=== PATIENT | male | born 1965 | race Caucasian/White ===

== ENCOUNTER 2017-05-03 09:10 | Inpatient (IN) | payer OTHER ==
[2017-05-03] MEDS: ALBUTEROL 0.5% (NEB) 2.5 MG/0.5 ML AMP NEB (11:32)
[2017-05-03] MEDS: IPRATROPIUM (NEB) 0.5 MG/2.5 ML AMP NEB (11:32)
[2017-05-03 11:36] LABS: ADD MAN DIFF? NO
[2017-05-03 11:39] LABS: WHITE BLOOD COUNT 11.3 10^3/ul (4.8-10.8)
[2017-05-03 11:39] LABS: BASOPHILS % 0.4 % (0.0-2.0); EOSINOPHILS % 0.2 % (0.0-7.0); HEMATOCRIT 48.7 % (42.0-52.0); HEMOGLOBIN 15.3 g/dl (14.0-18.0); LYMPHOCYTES # 1.4 10^3/ul (0.8-2.9); LYMPHOCYTES % 12.1 % (15.0-51.0); MEAN CORPUSCULAR HEMOGLOBIN 28.2 pg (29.0-33.0); MEAN CORPUSCULAR HGB CONC 31.4 g/dl (32.0-37.0); MEAN CORPUSCULAR VOLUME 89.7 fl (82.0-101.0); MEAN PLATELET VOLUME 9.6 fl (7.4-10.4); MONOCYTE # 1.1 10^3/ul (0.3-0.9); MONOCYTES % 9.7 % (0.0-11.0); NEUTROPHIL # 8.7 10^3/ul (1.6-7.5); NEUTROPHILS % 77.1 % (39.0-77.0); NUCLEATED RED BLOOD CELLS% 0.2 /100WBC (0.0-0.0); PLATELET COUNT 291 10^3/UL (140-415); RED BLOOD COUNT 5.43 10^6/ul (4.70-6.10); RED CELL DISTRIBUTION WIDTH 13.7 % (11.5-14.5)
[2017-05-03 12:04] LABS: ANION GAP 19 (8-16); BLOOD UREA NITROGEN 34 mg/dl (7-20); CALCIUM 8.9 mg/dl (8.4-10.2); CARBON DIOXIDE 32 mmol/L (21-31); CHLORIDE 98 mmol/L (97-110); CREATININE 1.26 mg/dl (0.61-1.24); GLUCOSE 108 mg/dl (70-220); POTASSIUM 3.9 mmol/L (3.5-5.1); SODIUM 145 mmol/L (135-144)
[2017-05-03] MEDS: CEFTRIAXONE 1 GM/50 ML (PMX) 50 ML IVPB (12:13)
[2017-05-03 12:22] LABS: TROPONIN-I 0.144 ng/ml (0.00-0.12)
[2017-05-03] MEDS ORDERED: ONDANSETRON 4 MG INJ IV ×2 (12:30→15:00)
[2017-05-03] MEDS ORDERED: ACETAMINOPHEN 325 MG TAB PO (12:30)
[2017-05-03] MEDS: AZITHROMYCIN 500MG/250 ML IVPB IV (14:12)
[2017-05-03] MEDS ORDERED: SOD CHLORIDE 0.9% 1,000 ML IV (15:00)
[2017-05-03] MEDS: [UNRECOGNIZED DRUG - MIXTURE] XX (17:27)
[2017-05-03] MEDS: LEVOFLOXACIN 750MG/D5W (PMX) 150 ML IVPB (17:40)
[2017-05-03] MEDS: METOPROLOL (XL) 25 MG TAB PO (17:40)
[2017-05-03] MEDS: ACETAMINOPHEN 325 MG TAB PO ×2 (17:54→20:46)
[2017-05-03] MEDS: ALBUTEROL/IPRATROPIUM (NEB) 3 ML AMP HHN ×2 (17:56→20:41)
[2017-05-03 19:58] LABS: CREATINE KINASE 156 IU/L (23-200)
[2017-05-03 19:59] LABS: PHOSPHORUS 2.3 mg/dl (2.5-4.9)
[2017-05-03 19:59] LABS: MAGNESIUM 1.9 mg/dl (1.7-2.5)
[2017-05-03 20:05] LABS: OPIATES Negative (NEGATIVE)
[2017-05-03 20:12] LABS: CK INDEX 1.8; CK-MB 2.81 ng/ml (0.0-2.4); TROPONIN-I 0.175 ng/ml (0.00-0.12)
[2017-05-03 20:16] LABS: AMPHETAMINE/METHAMPHETAMINE POSITIVE (NEGATIVE); BARBITURATES Negative (NEGATIVE); BENZODIAZEPINES Negative (NEGATIVE); CANNABINOIDS Negative (NEGATIVE); COCAINE Negative (NEGATIVE)
[2017-05-03] MEDS: DOCUSATE SODIUM 100 MG CAP PO (20:22)
[2017-05-03] MEDS: ATORVASTATIN 80 MG TAB PO (20:51)
[2017-05-03] MEDS: FAMOTIDINE 20 MG TAB PO (20:51)
[2017-05-03] MEDS: ENOXAPARIN 60 MG/0.6 ML SYG SC (21:00)
[2017-05-03] MEDS: POTASSIUM PHOSPHATE 15 MM in SOD CHLORIDE 0.9% 250 ML IVPB (22:45)
[2017-05-04 00:16] LABS: CREATINE KINASE 152 IU/L (23-200)
[2017-05-04 00:27] LABS: CK INDEX 2.2
[2017-05-04 00:30] LABS: CK-MB 3.32 ng/ml (0.0-2.4); TROPONIN-I 0.182 ng/ml (0.00-0.12)
[2017-05-04] MEDS: ALBUTEROL/IPRATROPIUM (NEB) 3 ML AMP HHN ×4 (01:24→21:24)
[2017-05-04] MEDS: [UNRECOGNIZED DRUG - MIXTURE] XX ×3 (01:30→15:57)
[2017-05-04 07:34] LABS: ADD MAN DIFF? NO
[2017-05-04 07:53] LABS: BASOPHILS % 0.4 % (0.0-2.0); EOSINOPHILS % 0.4 % (0.0-7.0); HEMOGLOBIN 14.3 g/dl (14.0-18.0); LYMPHOCYTES # 1.8 10^3/ul (0.8-2.9); LYMPHOCYTES % 18.2 % (15.0-51.0); MEAN CORPUSCULAR HGB CONC 30.4 g/dl (32.0-37.0); MEAN CORPUSCULAR VOLUME 92.2 fl (82.0-101.0); MEAN PLATELET VOLUME 10.1 fl (7.4-10.4); MONOCYTE # 0.9 10^3/ul (0.3-0.9); MONOCYTES % 8.7 % (0.0-11.0); NEUTROPHIL # 7.1 10^3/ul (1.6-7.5); NEUTROPHILS % 71.8 % (39.0-77.0); PLATELET COUNT 246 10^3/UL (140-415); RED CELL DISTRIBUTION WIDTH 13.7 % (11.5-14.5)
[2017-05-04 07:53] LABS: WHITE BLOOD COUNT 9.9 10^3/ul (4.8-10.8)
[2017-05-04] MEDS: FAMOTIDINE 20 MG TAB PO ×2 (08:03→20:48)
[2017-05-04] MEDS: DOCUSATE SODIUM 100 MG CAP PO ×2 (08:03→20:48)
[2017-05-04] MEDS: METOPROLOL (XL) 25 MG TAB PO (08:04)
[2017-05-04 08:12] LABS: HEMOGLOBIN A1C 6.5 % (0-5.9)
[2017-05-04 08:13] LABS: ALANINE AMINOTRANSFERASE 37 IU/L (13-69); ALBUMIN 3.7 g/dl (3.3-4.9); ALKALINE PHOSPHATASE 90 IU/L (42-121); ANION GAP 15 (8-16); ASPARTATE AMINO TRANSFERASE 36 IU/L (15-46); BILIRUBIN,INDIRECT 0.1 mg/dl (0-1.1); BILIRUBIN,TOTAL 0.1 mg/dl (0.2-1.3); BLOOD UREA NITROGEN 31 mg/dl (7-20); CALCIUM 8.4 mg/dl (8.4-10.2); CARBON DIOXIDE 33 mmol/L (21-31); CHLORIDE 100 mmol/L (97-110); CREATININE 1.07 mg/dl (0.61-1.24); GLUCOSE 114 mg/dl (70-220); MAGNESIUM 2.2 mg/dl (1.7-2.5); PHOSPHORUS 3.5 mg/dl (2.5-4.9); POTASSIUM 4.6 mmol/L (3.5-5.1); SODIUM 143 mmol/L (135-144); TOTAL PROTEIN 7.3 g/dl (6.1-8.1)
[2017-05-04] MEDS: FUROSEMIDE 20 MG INJ IV (08:14)
[2017-05-04] MEDS: ENOXAPARIN 60 MG/0.6 ML SYG SC (08:14)
[2017-05-04] MEDS: ASPIRIN (EC) 81 MG TAB PO (08:14)
[2017-05-04] MEDS: LEVOFLOXACIN 750MG/D5W (PMX) 150 ML IVPB (17:16)
[2017-05-04 19:51] LABS: THYROID STIMULATING HORMONE 0.723 MIU/L (0.465-4.680)
[2017-05-04] MEDS: METHYLPREDNISOLONE 125 MG INJ IV (20:47)
[2017-05-04] MEDS: ATORVASTATIN 80 MG TAB PO (20:48)
[2017-05-04] MEDS: BENAZEPRIL 10 MG TAB PO (20:48)
[2017-05-04] MEDS: hydrALAzine 20 MG INJ IV (23:57)
[2017-05-05] MEDS: ALBUTEROL/IPRATROPIUM (NEB) 3 ML AMP HHN ×4 (02:31→20:13)
[2017-05-05] MEDS: [UNRECOGNIZED DRUG - MIXTURE] XX ×3 (07:31→17:30)
[2017-05-05 08:03] LABS: ADD MAN DIFF? NO
[2017-05-05 08:08] LABS: BASOPHILS % 0.3 % (0.0-2.0); HEMATOCRIT 47.2 % (42.0-52.0); HEMOGLOBIN 14.5 g/dl (14.0-18.0); LYMPHOCYTES # 0.9 10^3/ul (0.8-2.9); LYMPHOCYTES % 11.5 % (15.0-51.0); MEAN CORPUSCULAR HEMOGLOBIN 27.8 pg (29.0-33.0); MEAN CORPUSCULAR HGB CONC 30.7 g/dl (32.0-37.0); MEAN CORPUSCULAR VOLUME 90.4 fl (82.0-101.0); MONOCYTE # 0.1 10^3/ul (0.3-0.9); MONOCYTES % 1.3 % (0.0-11.0); NEUTROPHIL # 6.8 10^3/ul (1.6-7.5); NEUTROPHILS % 85.3 % (39.0-77.0); PLATELET COUNT 280 10^3/UL (140-415); RED BLOOD COUNT 5.22 10^6/ul (4.70-6.10); RED CELL DISTRIBUTION WIDTH 13.4 % (11.5-14.5)
[2017-05-05 08:27] LABS: CHOLESTEROL 166 mg/dl (100-200)
[2017-05-05 08:27] LABS: CHOL/HDL RATIO 4.7 RATIO; CREATINE KINASE 87 IU/L (23-200); HDL CHOLESTEROL 35 mg/dl (28-71); LDL CHOLESTEROL,CALCULATED 111 mg/dl; TRIGLYCERIDES 101 mg/dl (0-149)
[2017-05-05 08:35] LABS: CK INDEX 3.4
[2017-05-05 08:37] LABS: CK-MB 2.98 ng/ml (0.0-2.4); TROPONIN-I 0.134 ng/ml (0.00-0.12)
[2017-05-05 08:38] LABS: ANION GAP 15 (8-16); BLOOD UREA NITROGEN 26 mg/dl (7-20); CALCIUM 8.8 mg/dl (8.4-10.2); CARBON DIOXIDE 34 mmol/L (21-31); CHLORIDE 96 mmol/L (97-110); CREATININE 0.82 mg/dl (0.61-1.24); GLUCOSE 143 mg/dl (70-220); POTASSIUM 4.7 mmol/L (3.5-5.1); SODIUM 140 mmol/L (135-144)
[2017-05-05] MEDS: ASPIRIN (EC) 81 MG TAB PO (08:51)
[2017-05-05] MEDS: BENAZEPRIL 10 MG TAB PO (08:51)
[2017-05-05] MEDS: FUROSEMIDE 20 MG INJ IV (08:51)
[2017-05-05] MEDS: DOCUSATE SODIUM 100 MG CAP PO ×2 (08:51→20:32)
[2017-05-05] MEDS: FAMOTIDINE 20 MG TAB PO ×2 (08:52→20:33)
[2017-05-05] MEDS: ENOXAPARIN 40 MG/0.4 ML SYG SC (08:52)
[2017-05-05] MEDS: METOPROLOL (XL) 25 MG TAB PO (08:52)
[2017-05-05 11:08] LABS: AADO2 Arterial 116.2 mmHg (7.0-24.0); Allen Test ACCEPTAB; Arterial Base Excess 7.4 mmol/L (-3.0-3); Arterial Blood Gas Oxygen Sat 90.6 mmHG (95.0-98.0); Arterial COHb 0.7 % (0.0-3.0); Arterial Fraction of Oxyhgb 89.8 % (93.0-99.0); Arterial HCO3 35.8 mmol/L (22.0-26.0); Arterial MetHb 0.2 % (0.0-1.5); Arterial Total Hemglobin 15.5 g/dl (12.0-18.0); Arterial pCO2 66.6 mmhg (35-45); MODE NASAL CANNULA; Site Right Radial
[2017-05-05] MEDS: CEFEPIME 1GM/50 ML (PMX) 50 ML IVPB ×2 (11:17→20:32)
[2017-05-05] MEDS: BENAZEPRIL 20 MG TAB PO (15:19)
[2017-05-05] MEDS: LEVOFLOXACIN 750MG/D5W (PMX) 150 ML IVPB (15:19)
[2017-05-05] MEDS: ATORVASTATIN 80 MG TAB PO (20:32)
[2017-05-05] MEDS: hydrALAzine 20 MG INJ IV (20:47)
[2017-05-06] MEDS: [UNRECOGNIZED DRUG - MIXTURE] XX ×3 (01:30→17:30)
[2017-05-06] MEDS: ALBUTEROL/IPRATROPIUM (NEB) 3 ML AMP HHN ×3 (01:53→20:53)
[2017-05-06 07:21] LABS: ADD MAN DIFF? NO
[2017-05-06 07:23] LABS: WHITE BLOOD COUNT 9.6 10^3/ul (4.8-10.8)
[2017-05-06 07:23] LABS: BASOPHIL # 0.1 10^3/ul (0.0-0.1); BASOPHILS % 0.5 % (0.0-2.0); EOSINOPHILS % 0.2 % (0.0-7.0); HEMATOCRIT 46.5 % (42.0-52.0); HEMOGLOBIN 14.4 g/dl (14.0-18.0); LYMPHOCYTES # 1.4 10^3/ul (0.8-2.9); LYMPHOCYTES % 14.7 % (15.0-51.0); MEAN CORPUSCULAR HEMOGLOBIN 27.8 pg (29.0-33.0); MEAN CORPUSCULAR VOLUME 89.8 fl (82.0-101.0); MEAN PLATELET VOLUME 9.5 fl (7.4-10.4); MONOCYTE # 0.6 10^3/ul (0.3-0.9); MONOCYTES % 6.6 % (0.0-11.0); NEUTROPHIL # 7.4 10^3/ul (1.6-7.5); NUCLEATED RED BLOOD CELLS% 0.2 /100WBC (0.0-0.0); PLATELET COUNT 329 10^3/UL (140-415); RED BLOOD COUNT 5.18 10^6/ul (4.70-6.10); RED CELL DISTRIBUTION WIDTH 13.3 % (11.5-14.5)
[2017-05-06 07:42] LABS: MAGNESIUM 1.9 mg/dl (1.7-2.5)
[2017-05-06 07:45] LABS: ANION GAP 13 (8-16); BLOOD UREA NITROGEN 27 mg/dl (7-20); CARBON DIOXIDE 35 mmol/L (21-31); CHLORIDE 96 mmol/L (97-110); CREATININE 0.83 mg/dl (0.61-1.24); GLUCOSE 130 mg/dl (70-220); POTASSIUM 4.3 mmol/L (3.5-5.1); SODIUM 140 mmol/L (135-144)
[2017-05-06] MEDS: DOCUSATE SODIUM 100 MG CAP PO ×2 (08:11→20:41)
[2017-05-06] MEDS: FAMOTIDINE 20 MG TAB PO ×2 (08:12→20:41)
[2017-05-06] MEDS: METOPROLOL (XL) 25 MG TAB PO (08:12)
[2017-05-06] MEDS: ASPIRIN (EC) 81 MG TAB PO (08:12)
[2017-05-06] MEDS: FUROSEMIDE 20 MG INJ IV (08:12)
[2017-05-06] MEDS: BENAZEPRIL 40 MG TAB PO (08:12)
[2017-05-06] MEDS: CEFEPIME 1GM/50 ML (PMX) 50 ML IVPB ×2 (08:13→22:32)
[2017-05-06] MEDS: ENOXAPARIN 40 MG/0.4 ML SYG SC (09:00)
[2017-05-06] MEDS: AMLODIPINE 5 MG TAB PO ×2 (10:44→20:44)
[2017-05-06] MEDS: LEVOFLOXACIN 750MG/D5W (PMX) 150 ML IVPB (15:26)
[2017-05-06] MEDS: hydrALAzine 20 MG INJ IV (17:22)
[2017-05-06] MEDS: CLOPIDOGREL 75 MG TAB PO (18:05)
[2017-05-06] MEDS: ATORVASTATIN 80 MG TAB PO (20:41)
[2017-05-07] MEDS: ALBUTEROL/IPRATROPIUM (NEB) 3 ML AMP HHN ×2 (02:06→20:34)
[2017-05-07 07:24] LABS: ADD MAN DIFF? NO
[2017-05-07 07:27] LABS: BASOPHIL # 0.1 10^3/ul (0.0-0.1); BASOPHILS % 0.8 % (0.0-2.0); EOSINOPHILS # 0.1 10^3/ul (0.0-0.5); EOSINOPHILS % 0.9 % (0.0-7.0); HEMATOCRIT 46.9 % (42.0-52.0); LYMPHOCYTES # 1.6 10^3/ul (0.8-2.9); LYMPHOCYTES % 17.4 % (15.0-51.0); MEAN CORPUSCULAR HEMOGLOBIN 28.4 pg (29.0-33.0); MEAN CORPUSCULAR VOLUME 88.7 fl (82.0-101.0); MEAN PLATELET VOLUME 9.4 fl (7.4-10.4); MONOCYTE # 0.7 10^3/ul (0.3-0.9); MONOCYTES % 7.8 % (0.0-11.0); NEUTROPHIL # 6.4 10^3/ul (1.6-7.5); NEUTROPHILS % 71.5 % (39.0-77.0); NUCLEATED RED BLOOD CELLS% 0.2 /100WBC (0.0-0.0); PLATELET COUNT 324 10^3/UL (140-415); RED BLOOD COUNT 5.29 10^6/ul (4.70-6.10); RED CELL DISTRIBUTION WIDTH 13.2 % (11.5-14.5)
[2017-05-07 07:47] LABS: ANION GAP 15 (8-16); BLOOD UREA NITROGEN 23 mg/dl (7-20); CALCIUM 9.1 mg/dl (8.4-10.2); CARBON DIOXIDE 34 mmol/L (21-31); CHLORIDE 95 mmol/L (97-110); CREATININE 0.87 mg/dl (0.61-1.24); GLUCOSE 126 mg/dl (70-220); POTASSIUM 4.2 mmol/L (3.5-5.1); SODIUM 140 mmol/L (135-144)
[2017-05-07] MEDS: [UNRECOGNIZED DRUG - MIXTURE] XX ×3 (07:51→16:08)
[2017-05-07] MEDS: CEFEPIME 1GM/50 ML (PMX) 50 ML IVPB ×2 (08:16→21:17)
[2017-05-07] MEDS: CLOPIDOGREL 75 MG TAB PO (08:17)
[2017-05-07] MEDS: ASPIRIN (EC) 81 MG TAB PO (08:17)
[2017-05-07] MEDS: FAMOTIDINE 20 MG TAB PO ×2 (08:17→21:17)
[2017-05-07] MEDS: DOCUSATE SODIUM 100 MG CAP PO ×2 (08:17→21:17)
[2017-05-07] MEDS: AMLODIPINE 5 MG TAB PO ×2 (08:19→21:18)
[2017-05-07] MEDS: BENAZEPRIL 40 MG TAB PO (08:19)
[2017-05-07] MEDS: FUROSEMIDE 20 MG INJ IV (08:19)
[2017-05-07] MEDS: ENOXAPARIN 40 MG/0.4 ML SYG SC (08:20)
[2017-05-07] MEDS: METOPROLOL (XL) 25 MG TAB PO (08:20)
[2017-05-07] MEDS: LEVOFLOXACIN 750MG/D5W (PMX) 150 ML IVPB (16:53)
[2017-05-07] MEDS: hydrALAzine 20 MG INJ IV (17:59)
[2017-05-07 20:01] LABS: B-TYPE NATRIURETIC PEPTIDE 2430 PG/ML (0-125)
[2017-05-07 20:02] LABS: TROPONIN-I 0.136 ng/ml (0.00-0.12)
[2017-05-07] MEDS: ATORVASTATIN 80 MG TAB PO (21:17)
[2017-05-08] MEDS: [UNRECOGNIZED DRUG - MIXTURE] XX ×3 (01:30→17:30)
[2017-05-08 01:32] LABS: TROPONIN-I 0.143 ng/ml (0.00-0.12)
[2017-05-08] MEDS: ALBUTEROL/IPRATROPIUM (NEB) 3 ML AMP HHN (02:14)
[2017-05-08 07:38] LABS: ADD MAN DIFF? NO
[2017-05-08 07:46] LABS: BASOPHIL # 0.1 10^3/ul (0.0-0.1); BASOPHILS % 0.7 % (0.0-2.0); EOSINOPHILS # 0.1 10^3/ul (0.0-0.5); EOSINOPHILS % 1.6 % (0.0-7.0); HEMATOCRIT 48.1 % (42.0-52.0); HEMOGLOBIN 15.2 g/dl (14.0-18.0); LYMPHOCYTES # 1.6 10^3/ul (0.8-2.9); LYMPHOCYTES % 18.4 % (15.0-51.0); MEAN CORPUSCULAR HEMOGLOBIN 27.8 pg (29.0-33.0); MEAN CORPUSCULAR HGB CONC 31.6 g/dl (32.0-37.0); MEAN CORPUSCULAR VOLUME 88.1 fl (82.0-101.0); MEAN PLATELET VOLUME 9.5 fl (7.4-10.4); MONOCYTE # 0.8 10^3/ul (0.3-0.9); MONOCYTES % 8.6 % (0.0-11.0); NEUTROPHIL # 6.1 10^3/ul (1.6-7.5); NUCLEATED RED BLOOD CELLS% 0.2 /100WBC (0.0-0.0); PLATELET COUNT 335 10^3/UL (140-415); RED BLOOD COUNT 5.46 10^6/ul (4.70-6.10); RED CELL DISTRIBUTION WIDTH 13.5 % (11.5-14.5)
[2017-05-08 07:46] LABS: WHITE BLOOD COUNT 8.8 10^3/ul (4.8-10.8)
[2017-05-08 08:23] LABS: TROPONIN-I 0.113 ng/ml (0.00-0.12)
[2017-05-08 08:30] LABS: ANION GAP 15 (8-16); BLOOD UREA NITROGEN 20 mg/dl (7-20); CARBON DIOXIDE 33 mmol/L (21-31); CHLORIDE 95 mmol/L (97-110); CREATININE 0.87 mg/dl (0.61-1.24); GLUCOSE 129 mg/dl (70-220); POTASSIUM 4.4 mmol/L (3.5-5.1); SODIUM 139 mmol/L (135-144)
[2017-05-08] MEDS: ENOXAPARIN 40 MG/0.4 ML SYG SC (09:00)
[2017-05-08] MEDS: ASPIRIN (EC) 81 MG TAB PO (09:09)
[2017-05-08] MEDS: CLOPIDOGREL 75 MG TAB PO (09:09)
[2017-05-08] MEDS: DOCUSATE SODIUM 100 MG CAP PO ×2 (09:10→21:18)
[2017-05-08] MEDS: FAMOTIDINE 20 MG TAB PO ×2 (09:10→21:19)
[2017-05-08] MEDS: BENAZEPRIL 40 MG TAB PO (09:10)
[2017-05-08] MEDS: AMLODIPINE 5 MG TAB PO ×2 (09:10→21:21)
[2017-05-08] MEDS: FUROSEMIDE 20 MG INJ IV (09:11)
[2017-05-08] MEDS: CEFEPIME 1GM/50 ML (PMX) 50 ML IVPB ×2 (09:11→21:19)
[2017-05-08] MEDS: METOPROLOL (XL) 25 MG TAB PO ×2 (09:15→21:20)
[2017-05-08 11:48] LABS: AADO2 Arterial 85.7 mmHg (7.0-24.0); Allen Test ACCEPTAB; Arterial Base Excess 7.5 mmol/L (-3.0-3); Arterial Blood Gas Oxygen Sat 94.1 mmHG (95.0-98.0); Arterial COHb 0.7 % (0.0-3.0); Arterial Fraction of Oxyhgb 93.2 % (93.0-99.0); Arterial HCO3 35.7 mmol/L (22.0-26.0); Arterial MetHb 0.3 % (0.0-1.5); Arterial Total Hemglobin 16.3 g/dl (12.0-18.0); MODE NASAL CANNULA; Site Right Radial
[2017-05-08 12:42] LABS: TROPONIN-I 0.121 ng/ml (0.00-0.12)
[2017-05-08] MEDS: SALMETEROL/FLUTICASONE 250/50 INHA INH ×2 (15:36→21:42)
[2017-05-08] MEDS: LEVOFLOXACIN 750MG/D5W (PMX) 150 ML IVPB (15:37)
[2017-05-08 19:04] LABS: TROPONIN-I 0.127 ng/ml (0.00-0.12)
[2017-05-08] MEDS: ATORVASTATIN 80 MG TAB PO (21:18)
[2017-05-08] MEDS: BENAZEPRIL 20 MG TAB PO (21:21)
[2017-05-09 01:17] LABS: TROPONIN-I 0.122 ng/ml (0.00-0.12)
[2017-05-09] MEDS: [UNRECOGNIZED DRUG - MIXTURE] XX ×3 (07:55→16:48)
[2017-05-09] MEDS: FAMOTIDINE 20 MG TAB PO ×2 (08:50→21:29)
[2017-05-09] MEDS: CLOPIDOGREL 75 MG TAB PO (08:50)
[2017-05-09] MEDS: ASPIRIN (EC) 81 MG TAB PO (08:50)
[2017-05-09] MEDS: CEFEPIME 1GM/50 ML (PMX) 50 ML IVPB ×2 (08:50→21:29)
[2017-05-09] MEDS: METOPROLOL (XL) 25 MG TAB PO ×2 (08:51→21:30)
[2017-05-09] MEDS: FUROSEMIDE 40 MG INJ IV (08:51)
[2017-05-09] MEDS: AMLODIPINE 5 MG TAB PO ×2 (08:51→21:30)
[2017-05-09] MEDS: DOCUSATE SODIUM 100 MG CAP PO ×2 (08:51→21:29)
[2017-05-09] MEDS: BENAZEPRIL 40 MG TAB PO (08:51)
[2017-05-09] MEDS: SALMETEROL/FLUTICASONE 250/50 INHA INH ×2 (08:58→21:28)
[2017-05-09] MEDS: ENOXAPARIN 40 MG/0.4 ML SYG SC (08:58)
[2017-05-09] MEDS: LEVOFLOXACIN 750MG/D5W (PMX) 150 ML IVPB (16:46)
[2017-05-09] MEDS: ATORVASTATIN 80 MG TAB PO (21:29)
[2017-05-09] MEDS: BENAZEPRIL 20 MG TAB PO (21:30)
[2017-05-10] MEDS: [UNRECOGNIZED DRUG - MIXTURE] XX ×3 (01:30→17:30)
[2017-05-10 08:09] LABS: AADO2 Arterial 74.5 mmHg (7.0-24.0); Allen Test ACCEPTAB; Arterial Base Excess 4.9 mmol/L (-3.0-3); Arterial Blood Gas Oxygen Sat 98.2 mmHG (95.0-98.0); Arterial COHb 0.9 % (0.0-3.0); Arterial Fraction of Oxyhgb 96.9 % (93.0-99.0); Arterial HCO3 30.5 mmol/L (22.0-26.0); Arterial MetHb 0.4 % (0.0-1.5); Arterial Total Hemglobin 15.8 g/dl (12.0-18.0); Arterial pCO2 48.3 mmhg (35-45); Blood Gas IEPAP 18/8; MODE MASK - BIPAP; Site Right Radial
[2017-05-10] MEDS: ENOXAPARIN 40 MG/0.4 ML SYG SC (09:00)
[2017-05-10] MEDS: CLOPIDOGREL 75 MG TAB PO (09:41)
[2017-05-10] MEDS: CEFEPIME 1GM/50 ML (PMX) 50 ML IVPB ×2 (09:41→20:26)
[2017-05-10] MEDS: SALMETEROL/FLUTICASONE 250/50 INHA INH ×2 (09:41→20:25)
[2017-05-10] MEDS: FAMOTIDINE 20 MG TAB PO ×2 (09:42→20:26)
[2017-05-10] MEDS: DOCUSATE SODIUM 100 MG CAP PO ×2 (09:42→20:25)
[2017-05-10] MEDS: BENAZEPRIL 40 MG TAB PO (09:42)
[2017-05-10] MEDS: METOPROLOL (XL) 25 MG TAB PO ×2 (09:43→20:26)
[2017-05-10] MEDS: AMLODIPINE 5 MG TAB PO ×2 (09:43→20:25)
[2017-05-10] MEDS: ASPIRIN (EC) 81 MG TAB PO (09:43)
[2017-05-10] MEDS: FUROSEMIDE 40 MG INJ IV (09:44)
[2017-05-10] MEDS: ATORVASTATIN 80 MG TAB PO (20:25)
[2017-05-10] MEDS: BENAZEPRIL 20 MG TAB PO (20:25)
[2017-05-10] MEDS: MONTELUKAST 10 MG TAB PO (20:26)
[2017-05-11] MEDS: [UNRECOGNIZED DRUG - MIXTURE] XX ×2 (01:30→09:29)
[2017-05-11 07:20] LABS: ADD MAN DIFF? NO
[2017-05-11 07:22] LABS: BASOPHIL # 0.1 10^3/ul (0.0-0.1); BASOPHILS % 0.7 % (0.0-2.0); EOSINOPHILS # 0.4 10^3/ul (0.0-0.5); EOSINOPHILS % 3.9 % (0.0-7.0); HEMATOCRIT 45.8 % (42.0-52.0); HEMOGLOBIN 14.3 g/dl (14.0-18.0); LYMPHOCYTES # 1.7 10^3/ul (0.8-2.9); LYMPHOCYTES % 15.9 % (15.0-51.0); MEAN CORPUSCULAR HGB CONC 31.2 g/dl (32.0-37.0); MEAN CORPUSCULAR VOLUME 89.6 fl (82.0-101.0); MEAN PLATELET VOLUME 9.5 fl (7.4-10.4); MONOCYTE # 0.8 10^3/ul (0.3-0.9); MONOCYTES % 7.7 % (0.0-11.0); NEUTROPHIL # 7.6 10^3/ul (1.6-7.5); NEUTROPHILS % 70.2 % (39.0-77.0); PLATELET COUNT 309 10^3/UL (140-415); RED BLOOD COUNT 5.11 10^6/ul (4.70-6.10); RED CELL DISTRIBUTION WIDTH 13.7 % (11.5-14.5)
[2017-05-11 07:22] LABS: WHITE BLOOD COUNT 10.9 10^3/ul (4.8-10.8)
[2017-05-11 07:55] LABS: ANION GAP 15 (8-16); BLOOD UREA NITROGEN 33 mg/dl (7-20); CALCIUM 8.9 mg/dl (8.4-10.2); CARBON DIOXIDE 33 mmol/L (21-31); CHLORIDE 101 mmol/L (97-110); CREATININE 0.97 mg/dl (0.61-1.24); GLUCOSE 102 mg/dl (70-220); MAGNESIUM 2.2 mg/dl (1.7-2.5); POTASSIUM 4.3 mmol/L (3.5-5.1); SODIUM 145 mmol/L (135-144)
[2017-05-11] MEDS: ENOXAPARIN 40 MG/0.4 ML SYG SC (09:00)
[2017-05-11] MEDS: METOPROLOL (XL) 25 MG TAB PO (09:26)
[2017-05-11] MEDS: AMLODIPINE 5 MG TAB PO (09:26)
[2017-05-11] MEDS: CLOPIDOGREL 75 MG TAB PO (09:26)
[2017-05-11] MEDS: FAMOTIDINE 20 MG TAB PO (09:26)
[2017-05-11] MEDS: DOCUSATE SODIUM 100 MG CAP PO (09:26)
[2017-05-11] MEDS: CEFEPIME 1GM/50 ML (PMX) 50 ML IVPB (09:27)
[2017-05-11] MEDS: ASPIRIN (EC) 81 MG TAB PO (09:27)
[2017-05-11] MEDS: BENAZEPRIL 40 MG TAB PO (09:27)
[2017-05-11] MEDS: FUROSEMIDE 40 MG INJ IV (09:28)
[2017-05-11] MEDS: SALMETEROL/FLUTICASONE 250/50 INHA INH (09:28)
== END 2017-05-11 16:58 | disposition home or self-care (01) | DRG 280 ==
LOC: FTE 09:10 → MS3 12:29 → TEL 23:37
DX: I21.4 Non-ST elevation (NSTEMI) myocardial infarction (principal); J18.9 Pneumonia, unspecified organism; I50.43 Acute on chronic combined systolic (congestive) and diastolic (congestive) heart failure; J18.0 Bronchopneumonia, unspecified organism; G93.41 Metabolic encephalopathy; J96.22 Acute and chronic respiratory failure with hypercapnia; Z68.41 Body mass index [BMI] 40.0-44.9, adult; J44.0 Chronic obstructive pulmonary disease with (acute) lower respiratory infection; J44.1 Chronic obstructive pulmonary disease with (acute) exacerbation; N17.9 Acute kidney failure, unspecified; I42.9 Cardiomyopathy, unspecified; E66.01 Morbid (severe) obesity due to excess calories; Y95 Nosocomial condition; F15.10 Other stimulant abuse, uncomplicated; E78.5 Hyperlipidemia, unspecified; I11.0 Hypertensive heart disease with heart failure; R73.03 Prediabetes; G47.30 Sleep apnea, unspecified; I27.20 Pulmonary hypertension, unspecified; I49.3 Ventricular premature depolarization; Z87.891 Personal history of nicotine dependence
CPT/HCPCS: 36600; 70450; 71045; 71250; 80048; 80061; 80076; 80307; 82550; 82553; 82803; 83036; 83735; 83880; 84100; 84443; 84484; 85025; 87040; 93005; 93306; 94640; 94644; 94660; 94664; 96365; 96366; 96375; 99285-25

== ENCOUNTER → 2017-05-03 | Outpatient (CLI) | payer OTHER | END | disposition home or self-care (01) | LOC: TEL 06:05 → LAB 06:25 | DX: Z02.9 Encounter for administrative examinations, unspecified (principal) ==

== ENCOUNTER 2017-05-22 11:58 | Inpatient (IN) | payer OTHER ==
[2017-05-22 16:43] LABS: ADD MAN DIFF? NO
[2017-05-22 16:45] LABS: WHITE BLOOD COUNT 9.1 10^3/ul (4.8-10.8)
[2017-05-22 16:45] LABS: BASOPHIL # 0.1 10^3/ul (0.0-0.1); EOSINOPHILS # 0.5 10^3/ul (0.0-0.5); EOSINOPHILS % 5.4 % (0.0-7.0); HEMATOCRIT 47.3 % (42.0-52.0); LYMPHOCYTES # 1.8 10^3/ul (0.8-2.9); LYMPHOCYTES % 19.9 % (15.0-51.0); MEAN CORPUSCULAR HGB CONC 31.7 g/dl (32.0-37.0); MEAN CORPUSCULAR VOLUME 88.2 fl (82.0-101.0); MEAN PLATELET VOLUME 9.5 fl (7.4-10.4); MONOCYTE # 0.7 10^3/ul (0.3-0.9); MONOCYTES % 7.4 % (0.0-11.0); NEUTROPHILS % 65.9 % (39.0-77.0); PLATELET COUNT 320 10^3/UL (140-415); RED BLOOD COUNT 5.36 10^6/ul (4.70-6.10); RED CELL DISTRIBUTION WIDTH 13.4 % (11.5-14.5)
[2017-05-22] MEDS: ALBUTEROL 0.083% (NEB) 2.5 MG/3 ML AMP HHN (16:58)
[2017-05-22 17:11] LABS: ALANINE AMINOTRANSFERASE 38 IU/L (13-69); ALBUMIN 4.2 g/dl (3.3-4.9); ALBUMIN/GLOBULIN RATIO 1.13; ALKALINE PHOSPHATASE 82 IU/L (42-121); ANION GAP 16 (8-16); ASPARTATE AMINO TRANSFERASE 32 IU/L (15-46); BILIRUBIN,INDIRECT 0.1 mg/dl (0-1.1); BILIRUBIN,TOTAL 0.1 mg/dl (0.2-1.3); BLOOD UREA NITROGEN 16 mg/dl (7-20); CALCIUM 9.5 mg/dl (8.4-10.2); CARBON DIOXIDE 30 mmol/L (21-31); CHLORIDE 101 mmol/L (97-110); CREATININE 0.84 mg/dl (0.61-1.24); GLUCOSE 109 mg/dl (70-220); LIPASE 54 U/L (23-300); POTASSIUM 4.1 mmol/L (3.5-5.1); SODIUM 143 mmol/L (135-144); TOTAL PROTEIN 7.9 g/dl (6.1-8.1)
[2017-05-22] MEDS: FUROSEMIDE 40 MG INJ IV (17:17)
[2017-05-22 17:24] LABS: B-TYPE NATRIURETIC PEPTIDE 1370 PG/ML (0-125); TROPONIN-I 0.083 ng/ml (0.00-0.12)
[2017-05-22] MEDS: ASPIRIN 81 MG TAB PO (17:28)
[2017-05-22] MEDS ORDERED: ALBUTEROL 0.083% (NEB) 2.5 MG/3 ML AMP NEB (18:30)
[2017-05-22] MEDS ORDERED: NACL 0.9% 3 ML SYG IV (19:00)
[2017-05-22] MEDS: predniSONE 20 MG TAB PO (19:18)
[2017-05-22] MEDS: AZITHROMYCIN 250 MG TAB PO (19:18)
[2017-05-22] MEDS: ATORVASTATIN 80 MG TAB PO (22:28)
[2017-05-22] MEDS: BENAZEPRIL 20 MG TAB PO (22:29)
[2017-05-22] MEDS: METOPROLOL (XL) 25 MG TAB PO (22:30)
[2017-05-22] MEDS: AMLODIPINE 5 MG TAB PO (22:30)
[2017-05-22] MEDS: MONTELUKAST 10 MG TAB PO (22:30)
[2017-05-23] MEDS: ASPIRIN (EC) 81 MG TAB PO (08:33)
[2017-05-23] MEDS: CLOPIDOGREL 75 MG TAB PO (08:33)
[2017-05-23] MEDS: predniSONE 20 MG TAB PO (08:33)
[2017-05-23] MEDS: AMLODIPINE 5 MG TAB PO ×2 (08:34→21:06)
[2017-05-23] MEDS: BENAZEPRIL 40 MG TAB PO (08:34)
[2017-05-23] MEDS: METOPROLOL (XL) 25 MG TAB PO ×2 (08:34→21:07)
[2017-05-23] MEDS: ENOXAPARIN 40 MG/0.4 ML SYG SC (08:35)
[2017-05-23] MEDS: FUROSEMIDE 40 MG TAB PO ×2 (08:35→18:05)
[2017-05-23 09:03] LABS: ADD MAN DIFF? NO
[2017-05-23 09:07] LABS: BASOPHILS % 0.4 % (0.0-2.0); EOSINOPHILS % 0.1 % (0.0-7.0); HEMATOCRIT 42.5 % (42.0-52.0); HEMOGLOBIN 13.6 g/dl (14.0-18.0); LYMPHOCYTES # 1.3 10^3/ul (0.8-2.9); LYMPHOCYTES % 13.7 % (15.0-51.0); MEAN CORPUSCULAR HEMOGLOBIN 28.1 pg (29.0-33.0); MEAN CORPUSCULAR VOLUME 87.8 fl (82.0-101.0); MONOCYTE # 0.3 10^3/ul (0.3-0.9); MONOCYTES % 3.7 % (0.0-11.0); NEUTROPHIL # 7.4 10^3/ul (1.6-7.5); NEUTROPHILS % 81.6 % (39.0-77.0); PLATELET COUNT 310 10^3/UL (140-415); RED BLOOD COUNT 4.84 10^6/ul (4.70-6.10); RED CELL DISTRIBUTION WIDTH 13.5 % (11.5-14.5)
[2017-05-23 09:07] LABS: WHITE BLOOD COUNT 9.1 10^3/ul (4.8-10.8)
[2017-05-23 09:28] LABS: ANION GAP 15 (8-16); BLOOD UREA NITROGEN 21 mg/dl (7-20); CALCIUM 9.4 mg/dl (8.4-10.2); CARBON DIOXIDE 30 mmol/L (21-31); CHLORIDE 102 mmol/L (97-110); CREATININE 0.85 mg/dl (0.61-1.24); GLUCOSE 113 mg/dl (70-220); MAGNESIUM 1.9 mg/dl (1.7-2.5); POTASSIUM 4.3 mmol/L (3.5-5.1); SODIUM 143 mmol/L (135-144)
[2017-05-23] MEDS: AZITHROMYCIN 250 MG TAB PO (10:50)
[2017-05-23] MEDS: SALMETEROL/FLUTICASONE 250/50 INHA INH ×2 (15:19→21:06)
[2017-05-23] MEDS: ATORVASTATIN 80 MG TAB PO (21:06)
[2017-05-23] MEDS: MONTELUKAST 10 MG TAB PO (21:06)
[2017-05-23] MEDS: BENAZEPRIL 20 MG TAB PO (21:07)
[2017-05-24] MEDS: FUROSEMIDE 40 MG TAB PO ×2 (05:55→17:02)
[2017-05-24 08:06] LABS: AMPHETAMINE/METHAMPHETAMINE Negative (NEGATIVE); BARBITURATES Negative (NEGATIVE); BENZODIAZEPINES Negative (NEGATIVE); CANNABINOIDS Negative (NEGATIVE); COCAINE Negative (NEGATIVE); OPIATES Negative (NEGATIVE)
[2017-05-24] MEDS: CLOPIDOGREL 75 MG TAB PO (08:42)
[2017-05-24] MEDS: BENAZEPRIL 40 MG TAB PO (08:42)
[2017-05-24] MEDS: SALMETEROL/FLUTICASONE 250/50 INHA INH (08:42)
[2017-05-24] MEDS: AMLODIPINE 5 MG TAB PO (08:43)
[2017-05-24] MEDS: METOPROLOL (XL) 25 MG TAB PO (08:43)
[2017-05-24] MEDS: ASPIRIN (EC) 81 MG TAB PO (08:44)
[2017-05-24] MEDS: predniSONE 20 MG TAB PO (08:44)
[2017-05-24] MEDS: AZITHROMYCIN 250 MG TAB PO (08:44)
[2017-05-24] MEDS: ENOXAPARIN 40 MG/0.4 ML SYG SC (08:48)
== END 2017-05-24 17:15 | disposition home or self-care (01) | DRG 291 ==
LOC: TEL 21:36 → E/R 11:58 → TEL 05-24 10:42
PROC: 5A09357 Assistance with Respiratory Ventilation, Less than 24 Consecutive Hours, Continuous Positive Airway Pressure (ICD-10-PCS; principal; 2017-05-22)
DX: I11.0 Hypertensive heart disease with heart failure (principal); J96.01 Acute respiratory failure with hypoxia; J44.1 Chronic obstructive pulmonary disease with (acute) exacerbation; Z68.41 Body mass index [BMI] 40.0-44.9, adult; I50.23 Acute on chronic systolic (congestive) heart failure; I42.9 Cardiomyopathy, unspecified; G47.33 Obstructive sleep apnea (adult) (pediatric); E66.9 Obesity, unspecified; Z91.14 Patient's other noncompliance with medication regimen
CPT/HCPCS: 36415; 71045; 80048; 80053; 80307; 83690; 83735; 83880; 84484; 85025; 87081; 93005; 94660; 94664; 96374; 99285-25

== ENCOUNTER 2017-07-25 06:00 | Day surgery (SDC) | payer OTHER ==
[2017-07-25 06:28] LABS: ADD MAN DIFF? NO
[2017-07-25 06:34] LABS: BASOPHIL # 0.1 10^3/ul (0.0-0.1); BASOPHILS % 0.9 % (0.0-2.0); EOSINOPHILS # 0.5 10^3/ul (0.0-0.5); EOSINOPHILS % 5.5 % (0.0-7.0); HEMATOCRIT 46.3 % (42.0-52.0); HEMOGLOBIN 15.2 g/dl (14.0-18.0); LYMPHOCYTES # 2.3 10^3/ul (0.8-2.9); LYMPHOCYTES % 28.5 % (15.0-51.0); MEAN CORPUSCULAR HEMOGLOBIN 28.6 pg (29.0-33.0); MEAN CORPUSCULAR HGB CONC 32.8 g/dl (32.0-37.0); MEAN PLATELET VOLUME 9.9 fl (7.4-10.4); MONOCYTE # 0.6 10^3/ul (0.3-0.9); MONOCYTES % 7.4 % (0.0-11.0); NEUTROPHIL # 4.7 10^3/ul (1.6-7.5); NEUTROPHILS % 57.2 % (39.0-77.0); PLATELET COUNT 292 10^3/UL (140-415); RED BLOOD COUNT 5.32 10^6/ul (4.70-6.10); RED CELL DISTRIBUTION WIDTH 13.2 % (11.5-14.5)
[2017-07-25 06:34] LABS: WHITE BLOOD COUNT 8.2 10^3/ul (4.8-10.8)
[2017-07-25 06:51] LABS: INR 0.91; PROTIME 12.3 Sec (11.9-14.9)
[2017-07-25 06:55] LABS: ANION GAP 14 (8-16); CARBON DIOXIDE 28 mmol/L (21-31); CHLORIDE 102 mmol/L (97-110); GLUCOSE 99 mg/dl (70-220)
[2017-07-25 07:02] LABS: BLOOD UREA NITROGEN 18 mg/dl (7-20); CALCIUM 9.8 mg/dl (8.4-10.2); CREATININE 1.15 mg/dl (0.61-1.24); POTASSIUM 4.2 mmol/L (3.5-5.1); SODIUM 140 mmol/L (135-144)
[2017-07-25] MEDS ORDERED: LIDOCAINE 1% (MDV) 20 ML INJ (07:15)
[2017-07-25] MEDS ORDERED: HEPARIN 1000 UNITS/ML 10 ML INJ (07:15)
[2017-07-25] MEDS ORDERED: VERAPAMIL 5 MG INJ (07:15)
[2017-07-25] MEDS ORDERED: FENTAnyl 50 MCG/ML VIAL (07:15)
[2017-07-25] MEDS ORDERED: IODIXANOL LOCM 100 ML BTL (07:15)
[2017-07-25] MEDS ORDERED: MIDAZOLAM 1 MG/ML 2 ML INJ (07:15)
[2017-07-25] MEDS ORDERED: NITROGLYCERIN (IC) 100 MCG/ML INJ (07:16)
[2017-07-25] MEDS ORDERED: SOD CHLORIDE 0.9% 1,000 ML IV (07:47)
== END 2017-07-25 10:54 | disposition home or self-care (01) ==
LOC: SDS 06:00
DX: I25.10 Atherosclerotic heart disease of native coronary artery without angina pectoris (principal); I42.9 Cardiomyopathy, unspecified; F17.200 Nicotine dependence, unspecified, uncomplicated; Z79.82 Long term (current) use of aspirin; I50.22 Chronic systolic (congestive) heart failure; J44.9 Chronic obstructive pulmonary disease, unspecified; I10 Essential (primary) hypertension; R94.31 Abnormal electrocardiogram [ECG] [EKG]
CPT/HCPCS: 80048; 85025; 85610; 93005; 93458